=== PATIENT | female | born 1990 | race Hispanic/Latino ===

== ENCOUNTER 2022-03-31 02:46 | Inpatient (IN) | payer OTHER ==
[2022-03-31] MEDS ORDERED: Lorazepam 2 MG/ML VIAL ONE ×3 (02:52→06:43)
[2022-03-31] MEDS ORDERED: Ketamine 50 MG/ML (10ML VIAL) ONE ×2 (03:08→06:07)
[2022-03-31 03:26] LABS: Hemoglobin 14.1 g/dL (12.0-16.0); Mean Corpuscular HGB CONC 32.2 g/dL (32.0-36.0); Mean Corpuscular Volume 90.1 fL (78.0-98.0); Mean Platelet Volume 8.3 fL (7.4-10.4); Platelet Count 351 thou/uL (130-400); RBC Distribution Width 13.7 % (11.5-14.5); Red Blood Cell (RBC) Count 4.87 mill/uL (4.20-5.40)
[2022-03-31 03:38] LABS: ALT (SGPT) 112 U/L (8-55); AST (SGOT) 105 U/L (5-34); Albumin 4.2 g/dL (3.5-5.0); Alkaline Phosphatase 72 U/L (40-110); Anion Gap 16 mmol/L (10-20); BUN (Urea Nitrogen) 8 mg/dL (7.0-18.7); Bilirubin, Total 0.3 mg/dL (0.2-1.2); Calc. Creatinine Clearance 0 mL/min (70-130); Calcium 9.2 mg/dL (7.8-10.44); Carbon Dioxide 25 mmol/L (22-29); Chloride 107 mmol/L (98-107); Estimated GFR 91; Globulin 3.2 g/dL (2.4-3.5); Glucose 128 mg/dL (70-105); Potassium 3.6 mmol/L (3.5-5.1); Protein, Total 7.4 g/dL (6.0-8.3); Sodium 144 mmol/L (136-145)
[2022-03-31 03:40] LABS: Acetaminophen Less than 10.0 mcg/mL (10.0-30.0); Alcohol 279 mg/dL (Less than 10); BHCG - Serum Negative (NEGATIVE); Pregs Control Background? CLEAR/WHITE (CLR/WHITE); Pregs Control Bar Appear? YES (CONTROL BAR); Salicylate Less than 8.0 mg/dL (15.0-30.0)
[2022-03-31 03:44] LABS: Band 2 % (5-11); Eosinophils 1 % (0-10); Lymphocytes 42 % (21-51); MDiff Complete? YES; Monocytes 5 % (0-10); Neutrophil 45 % (42-75); Reactive Lymphocytes 4 % (0-10)
[2022-03-31] MEDS ORDERED: Morphine 4 MG/ML VIAL SLOW IVP PRN (06:42)
[2022-03-31] MEDS ORDERED: hydrALAZINE 20 MG/ML VIAL SLOW IVP PRN (06:42)
[2022-03-31] MEDS ORDERED: Dextrose 50% Abboject 50 ML SYRINGE SLOW IVP PRN (06:42)
[2022-03-31] MEDS ORDERED: Dextrose 5% in Water 1,000 ML IV PRN (06:42)
[2022-03-31 07:47] LABS: SARS-CoV-2 NAA Rapid Test Not Detected (NotDetected)
[2022-03-31] MEDS ORDERED: ISOVUE-370 76%-LOCM 1 ML ONE (08:00)
[2022-03-31] MEDS ORDERED: Ketorolac Tromethamine 30 MG/ML VIAL ONE (10:20)
[2022-03-31] MEDS ORDERED: Ketorolac Tromethamine 30 MG/ML VIAL IVP SCH ×2 (10:30→18:00)
[2022-03-31 10:36] VITALS: BMI 27.9
[2022-03-31 11:07] LABS: Amphetamine Not Detected (NotDetected); Barbiturates Screen Not Detected (NotDetected); Benzodiazepine Screen Detected (NotDetected); Cocaine Metabolite Screen Detected (NotDetected); Methadone Not Detected (NotDetected); Methamphetamine Not Detected (NotDetected); Opiate Screen Not Detected (NotDetected); Oxycodone Screen Not Detected (NotDetected); Phencyclidine (PCP) Not Detected (NotDetected); THC/Cannabinoid Screen Detected (NotDetected); Tricyclic Screen Not Detected (NotDetected)
[2022-03-31] MEDS: Acetaminophen 500 MG TAB PO SCH ×4 (11:13→20:42)
[2022-03-31] MEDS: cloNIDine 0.1 MG TAB PO SCH ×3 (11:14→21:40)
[2022-03-31] MEDS: Gabapentin 300 MG CAP PO SCH ×3 (11:22→20:44)
[2022-03-31] MEDS: Thiamine 100 MG TAB PO SCH (11:22)
[2022-03-31] MEDS: Famotidine 20 MG TAB PO SCH ×2 (11:23→20:44)
[2022-03-31] MEDS: Folic Acid 1 MG TAB PO SCH (11:23)
[2022-03-31] MEDS: Multivitamin W/ Minerals 1 TAB PO SCH (11:23)
[2022-03-31] MEDS: Polyethylene Glycol 3350 17 GM Packet PO SCH (11:28)
[2022-03-31] MEDS: Senokot S 8.6-50 MG TAB PO SCH ×2 (11:28→20:46)
[2022-03-31] MEDS: Sodium Chloride 0.9% 1,000 ML IV SCH ×3 (11:30→23:09)
[2022-03-31] MEDS: Oxazepam 10 MG CAP PO SCH ×2 (15:28→21:41)
[2022-03-31] MEDS: Ondansetron PF 4 MG/2 ML Vial IVP PRN (23:12)
[2022-04-01] MEDS: traMADol HCl 50 MG TAB PO PRN ×4 (00:37→23:37)
[2022-04-01] MEDS: Acetaminophen 500 MG TAB PO SCH ×4 (02:27→20:47)
[2022-04-01] MEDS: cloNIDine 0.1 MG TAB PO SCH ×4 (04:46→22:38)
[2022-04-01] MEDS: Oxazepam 10 MG CAP PO SCH ×3 (05:47→21:53)
[2022-04-01] MEDS: Sodium Chloride 0.9% 1,000 ML IV SCH (05:48)
[2022-04-01 06:05] LABS: #Eosinphils 0.1 thou/uL (0.0-0.7); #Lymphocytes 2.6 thou/uL (1.20-3.40); #Monocytes 0.4 thou/uL (0.11-0.59); #Neutrophils 4.8 thou/uL (1.40-6.50); %Basophils 0.4 % (0.0-1.0); %Eosinophils 1.5 % (0.0-10.0); %Lymphocytes 33.2 % (21.0-51.0); %Monocytes 4.4 % (0.0-10.0); %Neutrophils 60.4 % (42.0-75.0); Hemoglobin 12.7 g/dL (12.0-16.0); Mean Corpuscular HGB CONC 33.2 g/dL (32.0-36.0); Mean Corpuscular Hemoglobin 29.8 pg (27.0-31.0); Mean Corpuscular Volume 89.9 fL (78.0-98.0); Mean Platelet Volume 8.2 fL (7.4-10.4); Platelet Count 228 thou/uL (130-400); RBC Distribution Width 13.5 % (11.5-14.5); Red Blood Cell (RBC) Count 4.27 mill/uL (4.20-5.40); White Blood Cell (WBC) Count 7.9 thou/uL (4.8-10.8)
[2022-04-01 06:30] LABS: Anion Gap 10 mmol/L (10-20); BUN (Urea Nitrogen) 12 mg/dL (7.0-18.7); Calc. Creatinine Clearance 177 mL/min (70-130); Calcium 8.2 mg/dL (7.8-10.44); Carbon Dioxide 27 mmol/L (22-29); Chloride 106 mmol/L (98-107); Estimated GFR 115; Glucose 91 mg/dL (70-105); Phosphorus 2.8 mg/dL (2.3-4.7); Potassium 3.4 mmol/L (3.5-5.1); Sodium 140 mmol/L (136-145)
[2022-04-01] MEDS: Famotidine 20 MG TAB PO SCH ×2 (11:05→20:47)
[2022-04-01] MEDS: Multivitamin W/ Minerals 1 TAB PO SCH (11:06)
[2022-04-01] MEDS: Folic Acid 1 MG TAB PO SCH (11:06)
[2022-04-01] MEDS: Gabapentin 300 MG CAP PO SCH ×3 (11:06→20:47)
[2022-04-01] MEDS: Thiamine 100 MG TAB PO SCH (11:06)
[2022-04-01] MEDS: Senokot S 8.6-50 MG TAB PO SCH ×3 (11:08→20:52)
[2022-04-01] MEDS: Polyethylene Glycol 3350 17 GM Packet PO SCH (11:08)
[2022-04-01] MEDS ORDERED: Potassium Chloride 20 MEQ TAB PO SCH (15:30)
[2022-04-01] MEDS ORDERED: Ibuprofen 800 MG TAB PO SCH (15:30)
[2022-04-01] MEDS: traMADol HCl 50 MG TAB PO SCH ×2 (16:57→21:55)
[2022-04-01] MEDS: Ondansetron PF 4 MG/2 ML Vial IVP PRN (19:32)
[2022-04-01] MEDS: Ibuprofen 200 MG TAB PO SCH (21:52)
[2022-04-02] MEDS: Acetaminophen 500 MG TAB PO SCH ×2 (01:33→09:55)
[2022-04-02] MEDS: traMADol HCl 50 MG TAB PO SCH ×2 (04:11→09:54)
[2022-04-02] MEDS: cloNIDine 0.1 MG TAB PO SCH ×2 (04:15→10:47)
[2022-04-02] MEDS: Ibuprofen 200 MG TAB PO SCH (05:35)
[2022-04-02] MEDS: Oxazepam 10 MG CAP PO SCH (05:36)
[2022-04-02] MEDS: Famotidine 20 MG TAB PO SCH (09:54)
[2022-04-02] MEDS: Thiamine 100 MG TAB PO SCH (09:55)
[2022-04-02] MEDS: Senokot S 8.6-50 MG TAB PO SCH (09:55)
[2022-04-02] MEDS: Gabapentin 300 MG CAP PO SCH (09:55)
[2022-04-02] MEDS: Polyethylene Glycol 3350 17 GM Packet PO SCH (09:55)
[2022-04-02] MEDS: Folic Acid 1 MG TAB PO SCH (09:55)
[2022-04-02] MEDS: Multivitamin W/ Minerals 1 TAB PO SCH (09:55)
[2022-04-02] MEDS: Ondansetron PF 4 MG/2 ML Vial IVP PRN (11:31)
[2022-04-02 12:01] VITALS: BP 115/80; TEMP 98
== END 2022-04-02 14:30 | disposition home or self-care (01) | DRG 88 ==
LOC: ERS 02:46 → EDBD 02:46 → IMCU/EMU 06:27 → SURG B 19:27
PROVIDERS: ADMIT Surgery; ATTEND Surgery
DX: S06.0X0A Concussion without loss of consciousness, initial encounter (principal); G92.9 Unspecified toxic encephalopathy; S22.41XA Multiple fractures of ribs, right side, initial encounter for closed fracture; S36.113A Laceration of liver, unspecified degree, initial encounter; Z20.822 Contact with and (suspected) exposure to COVID-19; S01.81XA Laceration without foreign body of other part of head, initial encounter; F10.129 Alcohol abuse with intoxication, unspecified; Z78.1 Physical restraint status; V47.6XXA Car passenger injured in collision with fixed or stationary object in traffic accident, initial encounter; F32.A Depression, unspecified; S80.212A Abrasion, left knee, initial encounter; S80.211A Abrasion, right knee, initial encounter; S80.812A Abrasion, left lower leg, initial encounter; S80.811A Abrasion, right lower leg, initial encounter; E87.6 Hypokalemia
CPT/HCPCS: 36415; 36416; 70450; 71045; 71260; 72125; 74177; 80048; 80053; 80306; 80307; 83735; 84100; 84703; 85025; 96374; 96375; 96376; J1885; J2060; J2405; J7050; Q9966; U0002

== ENCOUNTER 2022-09-09 09:54 | Emergency (ER) | payer OTHER ==
[2022-09-09 10:47] LABS: #Eosinphils 0.2 thou/uL (0.0-0.7); #Lymphocytes 2.3 thou/uL (1.20-3.40); #Monocytes 0.7 thou/uL (0.11-0.59); #Neutrophils 5.6 thou/uL (1.40-6.50); %Basophils 0.2 % (0.0-1.0); %Lymphocytes 26.1 % (21.0-51.0); %Monocytes 7.7 % (0.0-10.0); %Neutrophils 63.9 % (42.0-75.0); Hemoglobin 14.6 g/dL (12.0-16.0); Mean Corpuscular HGB CONC 34.1 g/dL (32.0-36.0); Mean Corpuscular Hemoglobin 31.7 pg (27.0-31.0); Mean Platelet Volume 8.4 fL (7.4-10.4); Platelet Count 260 10x3/uL (130-400); RBC Distribution Width 13.5 % (11.5-14.5); Red Blood Cell (RBC) Count 4.62 mill/uL (4.20-5.40); White Blood Cell (WBC) Count 8.8 10x3/uL (4.8-10.8)
[2022-09-09 10:51] LABS: BHCG - Serum Negative (NEGATIVE); Pregs Control Background? CLEAR/WHITE (CLR/WHITE); Pregs Control Bar Appear? YES (CONTROL BAR)
[2022-09-09 11:07] LABS: ALT (SGPT) 47 U/L (8-55); AST (SGOT) 24 U/L (5-34); Albumin 3.9 g/dL (3.5-5.0); Alkaline Phosphatase 69 U/L (40-110); Anion Gap 11 mmol/L (10-20); BUN (Urea Nitrogen) 9 mg/dL (7.0-18.7); Bilirubin, Total 0.7 mg/dL (0.2-1.2); Calc. Creatinine Clearance 0 mL/min (70-130); Calcium 8.7 mg/dL (7.8-10.44); Carbon Dioxide 25 mmol/L (22-29); Chloride 105 mmol/L (98-107); Estimated GFR 105; Globulin 3.1 g/dL (2.4-3.5); Glucose 116 mg/dL (70-105); Lipase 22 U/L (8-78); Potassium 3.5 mmol/L (3.5-5.1); Sodium 137 mmol/L (136-145)
== END 2022-09-09 12:43 | disposition home or self-care (01) ==
LOC: ERS 09:54
DX: R07.9 Chest pain, unspecified (principal); R05.9 Cough, unspecified
CPT/HCPCS: 36415; 71045; 80053; 83690; 84484; 84703; 85025; 93005

== ENCOUNTER 2023-01-07 19:11 | Emergency (ER) | payer OTHER ==
[2023-01-07] MEDS ORDERED: Promethazine HCl 25 MG/ML VIAL IM SCH (19:30)
[2023-01-07 20:18] LABS: Bacteria/HPF 2+ HPF (None Seen); Bilirubin Negative (Negative); Blood, Urine 2+ (Negative); Clarity Turbid (Clear); Glucose, Urine (Dipstick) Normal (Negative); Ketone, Urine Negative (Negative); Leukocyte 250 Leu/uL (Negative); Nitrite 2+ (Negative); Protein, Urine (Dipstick) 10 mg/dL (Neg-Trace); Specific Gravity, Urine 1.027 (1.002-1.036); Squamous Epithelial 21-50 HPF (0-3); Urobilinogen Normal mg/dL (Less than 2); WBC/HPF 21-50 HPF (0-3)
[2023-01-07 20:18] LABS: SARS-CoV-2 NAA Rapid Test Not Detected (NotDetected)
== END 2023-01-07 20:54 | disposition home or self-care (01) ==
LOC: ERS 19:11
DX: N30.00 Acute cystitis without hematuria (principal); Z20.822 Contact with and (suspected) exposure to COVID-19
CPT/HCPCS: 81003; 81015; 87081; 87430; 96372; 99284; J2550